=== PATIENT | female | born 1990 | race Caucasian/White ===

== ENCOUNTER 2017-01-12 11:38 | Emergency (ER) | payer BC, OTHER ==
[2017-01-12 12:17] VITALS: BP 102/62
--- NOTE | 2017-01-12 13:09 | UC ---
Throat Pain/Nasal Adolfo HPI - HPI Summary HPI Summary: Patient presents to the with sore throat and request for a rapid strep. Denies other symptoms including cough, congestion, eye pain, ear pain, fatigue. Denies fevers, sweats, chills or other signs of a systemic illness. She has a history of strep and states this feels similar. Otherwise healthy. Takes no medications. She has been using OTC cepcol tabs with mild relief. +odynophagia; + dysphagia - History of Current Complaint Chief Complaint: UCGeneralIllness Stated Complaint: SORE THROAT Time Seen by Provider: 01/12/17 12:07 Hx Obtained From: Patient Hx Last Menstrual Period: 12/23/16 ?: No Onset/Duration: Sudden Onset Severity: Moderate Pain Intensity: 3 Pain Scale Used: 0-10 Numeric Associated Signs & Symptoms: Positive: Dysphagia - Epiglottits Risk Factors Epiglottis Risk Factors: Negative - Allergies/Home Medications Allergies/Adverse Reactions: Allergies Allergy/AdvReac Type Severity Reaction Status Date / Time No Known Allergies Allergy Verified 01/12/17 12:12 Home Medications: Home Medications Ibuprofen TAB* [Advil TAB*] 200 mg PO Q6H PRN 01/12/17 [History Confirmed ] Multivitamins/Minerals TAB* [Thera M Plus TAB*] 1 tab PO DAILY 01/12/17 [ History Confirmed 01/12/17] Probiotic Product [Probiotic] 1 tab PO DAILY 01/12/17 [History Confirmed ] PMH/Surg Hx/FS Hx/Imm Hx Previously Healthy: Yes - Surgical History Surgical History: Yes Surgery Procedure, Year, and Place: D&C, 2016 - Family History Known Family History: Positive: Unknown - Social History Occupation: Employed Full-time Lives: With Family Alcohol Use: Occasionally Substance Use Type: None Smoking Status (MU): Former Smoker Amount Used/How Often: <1/4 PPD Length of Time of Smoking/Using Tobacco: On and Off for a total of 7 Years When Did the Patient Quit Smoking/Using Tobacco: 2012 - Immunization History Most Recent Influenza Vaccination: 12/30/16 Review of Systems Constitutional: Negative Skin: Negative ENT: Sore Throat Respiratory: Negative Cardiovascular: Negative Motor: Negative Neurovascular: Negative Musculoskeletal: Negative Neurological: Negative Is Patient Immunocompromised?: No All Other Systems Reviewed And Are Negative: Yes Physical Exam Triage Information Reviewed: Yes Appearance: Well-Appearing, Well-Nourished Vital Signs: Initial Vital Signs Temp 98.6 F 01/12/17 12:10 Pulse 72 01/12/17 12:10 Resp 16 01/12/17 12:10 BP 102/62 01/12/17 12:10 Pulse Ox 100 01/12/17 12:10 Vital Signs Reviewed: Yes Eye Exam: Normal Eyes: Positive: Conjunctiva Clear ENT: Positive: Pharyngeal erythema Neck exam: Normal Neck: Positive: Supple, No Lymphadenopathy Respiratory Exam: Normal Respiratory: Positive: Chest non-tender, Lungs clear Cardiovascular Exam: Normal Cardiovascular: Positive: RRR Musculoskeletal Exam: Normal Musculoskeletal: Positive: Strength Intact Neurological Exam: Normal Neurological: Positive: Alert Psychological: Positive: Normal Response To Family Skin Exam: Normal Throat Pain/Nasal Course/Dx - Course Course Of Treatment: Patient evaluated for sore throat x 2 days. Strep negative. Patient states she is OK with OTC supportive care and OK with discharge. - Differential Dx/Diagnosis Differential Diagnosis/HQI/PQRI: Pharyngitis, Tonsillitis, URI Provider Diagnoses: Pharyngitis Discharge - Discharge Plan Condition: Stable Disposition: HOME Patient Education Materials: Pharyngitis (ED) Referrals: No Primary Care Phys,NOPCP [Medical Doctor] - Additional Instructions: Cepacol and Chloraseptic sprays are best for throat pain Ibuprofen 600mg three times daily Ice cold drinks, ice chips and other cold foods Avoid food with sharp edges and salt If symptoms become worse, return to the or go to the ED
== END 2017-01-12 12:54 | disposition home or self-care (01) ==
LOC: UCCORT 11:38
DX: J02.9 Acute pharyngitis, unspecified (principal); Z87.891 Personal history of nicotine dependence
CPT/HCPCS: 87651; 99211; G0463

== ENCOUNTER 2017-10-06 15:55 | Emergency (ER) | payer OTHER ==
--- NOTE | 2017-10-06 16:06 | UC ---
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 She notified the staff there and the cat is currently being quarantined. Took some ibuprofen before coming. Denies fever, chills. Unsure if the cat is immunized. - History of Current Complaint Stated Complaint: CAT BITE Time Seen by Provider: 10/06/17 16:06 Hx Obtained From: Patient Hx Last Menstrual Period: 12/23/16 Severity Currently: Mild Severity Initially: Mild Pain Intensity: 4 Pain Scale Used: 0-10 Numeric Onset/Duration: Sudden Onset Type of Bite: Animal Has Animal Been Immunized?: Unknown Character: Puncture - Allergies/Home Medications Allergies/Adverse Reactions: Allergies Allergy/AdvReac Type Severity Reaction Status Date / Time No Known Allergies Allergy Verified 10/06/17 16:09 Home Medications: Home Medications Escitalopram (NF) [Lexapro 5 mg (NF)] 15 mg PO DAILY 10/06/17 [History Confirmed 10/06/17] Spironolactone TAB* [Aldactone TAB*] 50 mg PO DAILY 10/06/17 [History Confirmed 10/06/17] PMH/Surg Hx/FS Hx/Imm Hx Cardiovascular History: Hypertension Psychological History: Anxiety - Surgical History Surgical History: Yes Surgery Procedure, Year, and Place: D&C, 2016 - Family History Known Family History: Positive: Unknown - Social History Occupation: Employed Full-time Lives: With Family Alcohol Use: Occasionally Substance Use Type: None Smoking Status (MU): Former Smoker Amount Used/How Often: <1/4 PPD Length of Time of Smoking/Using Tobacco: On and Off for a total of 7 Years When Did the Patient Quit Smoking/Using Tobacco: 2012 - Immunization History Most Recent Influenza Vaccination: 12/30/16 Review of Systems Constitutional: Negative Skin: Other - Puncture wound right hand Respiratory: Negative Cardiovascular: Negative Neurovascular: Negative Neurological: Negative Psychological: Negative All Other Systems Reviewed And Are Negative: Yes Physical Exam - Summary Physical Exam Summary: GENERAL: NAD. WDWN. No pain distress. SKIN: Right thenar region: 2 puncture wounds and 1 linear abrasion. Mild edema, erythema, and tenderness to area. No streaking, bleeding, or drainage. NECK: Supple. Nontender. No lymphadenopathy. CHEST: No accessory muscle use. Breathing comfortably and in no distress. CV: RRR. Without m/r/g. Pulses intact. NEURO: Alert. CN II-XII grossly intact. PSYCH: Age appropriate behavior. Triage Information Reviewed: Yes Bite Injury Course/Dx - Course Course Of Treatment: Cat bite to right hand - rx for augmentin. She will follow up with the health department for further instructions. Upon waiting to be discharged, the patient experienced a syncopal episode while sitting in the chair. Her ~6 yo daughter witnessed this and said her mother was "out" for about 10 seconds. Pt tells me that she had just taken a sip of water and felt lightheaded, hot, and nauseous and then "blacked out". Woke up a few seconds later limping over the side of the chair and she had dropped the water on the floor. No SOB, chest pain, or headache. She tells me that this happened to her when she was younger and was found to be anemic, but has had no problems with this since childhood. Upon trying to stand the pt she became pale and felt hot, sweaty, and lightheaded again. She was moved to a stretcher and EKG was performed. EKG reveals NSR 69bpm no ST changes as read by Dr. Alves. Orthostatic BP went from sitting 95/59 with HR 72 to standing BP 71/36 with HR 56 and pt had return of symptoms and had to sit down again. I discussed with the patient transfer via ambulance to the ED for further evaluation. She did not want to go by ambulance, but was able to call a family member to drive her to the ED. Pt was escorted in a wheelchair to her sister's car and sister will drive her to the ED. - Differential Dx/Diagnosis Provider Diagnoses: Cat bite right hand. Syncope Discharge - Sign-Out/Discharge Documenting (check all that apply): Discharge/Admit/Transfer - Discharge Plan Condition: Stable Disposition: HOME Prescriptions: Amoxicillin/Clavulanate TAB* [Augmentin TAB 875*] 875 mg PO BID #20 tab Fluconazole 150 MG (NF) [Diflucan 150 mg (NF)] 150 mg PO ONCE #1 tab Patient Education Materials: Animal Bite (ED) Referrals: Non Staff,Doctor [Primary Care Provider] - Additional Instructions: If you develop a fever, shortness of breath, chest pain, new or worsening symptoms - please call your PCP or go to the ED. 1) The health department will be contacting you. You can notify them that your tetanus shot was updated today and that you are currently taking Augmentin for your cat bite. Regarding your fainting today - please go to the ER for further evaluation - Billing Disposition and Condition Condition: STABLE Disposition: Home
[2017-10-06] MEDS ORDERED: Tetan/Diph/Pertus SYR(Tdap)* 0.5 ML SYR(BOOSTRIX) use SYR IM ONE (16:20)
[2017-10-06] MEDS ORDERED: Ibuprofen TAB* 400 MG PO ONE (17:13)
[2017-10-06 17:49] VITALS: BP 107/65
== END 2017-10-06 17:53 | disposition home or self-care (01) ==
LOC: UCCORT 15:55
DX: S61.451A Open bite of right hand, initial encounter (principal); W55.01XA Bitten by cat, initial encounter; Y93.89 Activity, other specified; Y92.89 Other specified places as the place of occurrence of the external cause; R55 Syncope and collapse; I10 Essential (primary) hypertension; F41.9 Anxiety disorder, unspecified; Z87.891 Personal history of nicotine dependence
CPT/HCPCS: 90715; 93005; 99213; A9270-GY; G0463

== ENCOUNTER 2019-02-12 09:56 | Emergency (ER) | payer OTHER ==
--- OUTSIDE RECORDS SUMMARY | 2019-02-12 10:48 | XMS REPORT | Continuity of Care Document ---
:1990 External Reference #:[id number] Author Name Anshu Galloway MD Address [address], [address] [place] [address] Care Team Providers Name Role Phone Anshu Galloway M.D. 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 Palpitations Donte Collins MD Onset: 01/29/2015 Social History Type Date Description Comments Sex Unknown ETOH Use Rarely consumes alcohol Tobacco Use Start: Unknown End: Patient is a former smoker Recreational Drug Use Denies Drug Use Smoking Status Reviewed: 01/25/19 Patient is a former smoker Exercise Type/Frequency Exercises sporadically Allergies, Adverse Reactions, Alerts Active Allergies Reaction Severity Comments Date NKDA 10/07/2015 No Known Allergies 10/03/2015 Medications Active Medications SIG Qnty Indications Ordering Provider Date No Active Medications Unknown 01/25/2019 History Medications Amoxicillin one tablet by 20tabs J02.9 Geneva Ovalle MD 09/11/2018 - 875mg mouth twice a 09/21/2018 Tablets day x10 days. Medications Administered in Office Medication SIG Qnty Indications Ordering Provider Date TB Intradermal Test (PPD) Nurse, Nurse, Team E 10/09/2018 Injection TB Intradermal Test (PPD) Nurse, Nurse, Team E 09/25/2018 Injection TB Intradermal Test (PPD) Nurse, Nurse, Team E 08/23/2018 Injection Immunizations CPT Code Status Date Vaccine Lot # [id number] Given 01/20/2018 Influenza Vaccine, Quadrivalent, Split Virus, Im [id number] Use (Multi-Dose) 38347 Given 10/04/2017 MMR Vaccine, Live, For Subcutaneous Use [id number] 82941 Given 12/30/2016 Influenza Vaccine, Quadrivalent, Split Virus, Im [id number] Use (Multi-Dose) 19731 Given 02/13/2015 Influenza Virus Vaccine, Split 3 Yrs AB Vital Signs Date Vital Result Comment 01/25/2019 3:07pm Height 61 inches 5'1" Weight 134.12 lb BMI (Body Mass Index) 25.3 kg/m2 BP Systolic 108 mmHg BP Diastolic 68 mmHg Heart Rate 66 /min Body Temperature 97.9 F Body Temperature 36.6 C O2 % BldC Oximetry 98 % 10/18/2018 11:01am Height 61 inches 5'1" Weight 140.38 lb BMI (Body Mass Index) 26.5 kg/m2 BP Systolic 70 mmHg BP Diastolic 4 mmHg Heart Rate 59 /min Body Temperature 98.0 F Body Temperature 36.7 C O2 % BldC Oximetry 97 % Results Test Date Facility Test Result H/L Range Note Laboratory test E Learning Coordinator [facility] Rapid Strep POSITIVE Negative-N 1 finding 9 [address] [place] [address] [phone] Laboratory test E Learning Coordinator [facility] Varicella AB 2.91 - 2 finding 9 [address] [place] [address] [phone] Venipuncture DONE - 1 Result called to Vandana 6.3.19 10:52am bab [facility] and pranay 6.3.19 10:52am bab Negative screens should have a new specimen submitted for Group A Strep culture if clinically indicated. 2 As of 01/12/2016 Varicella AB IgG testing is performed on the [employer] DSX using KRYSTA methodology. Index Value Results Interpretation < 0.9 NEGATIVE NO VZV ANTIBODY DETECTED > = 0.9 to < 1.1 EQUIVOCAL PRESENCE OR ABSENCE OF VZV IGG ANTIBODY CANNOT BE DISCERNED > = 1.1 POSITIVE VZV IGG ANTIBODY DETECTED DISCLAIMER: A positive result indicates that the patient has antibody to VZV. It does not differentiate between an active or past infection. The clinical diagnosis must be interpreted in conjuction with the clinical signs and symptoms of the patient. The presence of IgG VZV Antibody is consistent with immunity. 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 Assessments Date Code Description Provider 01/25/2019 Z00.00 Encounter for general adult medical Anshu Galloway MD examination without abnormal findings 01/25/2019 F41.9 Anxiety disorder, unspecified Anshu Galloway MD 10/18/2018 F41.9 Anxiety disorder, unspecified Anshu Galloway MD 10/11/2018 Z11.1 Encounter for screening for respiratory Nurse, Nurse, Team E tuberculosis 10/09/2018 Z11.1 Encounter for screening for respiratory Anshu Galloway MD tuberculosis 10/09/2018 Z23 Encounter for immunization Nurse, Nurse, Team E 09/25/2018 Z23 Encounter for immunization Anshu Galloway MD 09/25/2018 Z23 Encounter for immunization Nurse, Nurse, Team E 09/11/2018 J02.9 Acute pharyngitis, unspecified Leonid Lomeli NP 09/11/2018 J02.9 Acute pharyngitis, unspecified [facility] 08/25/2018 Z11.1 Encounter for screening for respiratory Anshu Galloway MD tuberculosis 08/25/2018 Z11.1 Encounter for screening for respiratory Nurse, Nurse, Team E tuberculosis 08/23/2018 Z23 Encounter for immunization Anshu Galloway MD 08/23/2018 Z23 Encounter for immunization Nurse, Nurse, Team E 08/23/2018 Z23 Encounter for immunization [facility] Plan of Treatment 01/25/2019 - Anshu Galloway MDZ00.00 Encounter for general adult medical examination without abnormal findingsFollow up:In 12 [id number] Anxiety disorder, unspecified Functional Status Description No Information Available Mental Status Description No Information Available Referrals Description No Information Available
[2019-02-12 10:54] VITALS: BP 113/64
--- NOTE | 2019-02-12 11:15 | UC ---
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 Past UTI's, last over a year ago. Stable relationship x 10 years, not concerned about STI's. Has mild vaginal discomfort and would like screening for yeast and vaginosis. - History Of Current Complaint Chief Complaint: UCGU Stated Complaint: URINARY COMPLAINT Time Seen by Provider: 02/12/19 11:08 Hx Obtained From: Patient Hx Last Menstrual Period: 01/25/19 Onset/Duration: Gradual Onset, Lasting Days - 6-7, Worse Since - last pm Timing: Intermittent Severity Initially: Mild Pain Intensity: 0 Character: Burning, Cramping Aggravating Factor(s): Urination Alleviating Factor(s): Nothing Associated Signs And Symptoms: Positive: Negative. Negative: Back Pain, Nausea - Risk Factors Ectopic Risk Factor: Negative Ovarian Torsion Risk Factor: Negative - Allergies/Home Medications Allergies/Adverse Reactions: Allergies Allergy/AdvReac Type Severity Reaction Status Date / Time No Known Allergies Allergy Verified 02/12/19 10:52 Home Medications: Home Medications Cranberry Fruit Extract/Vit C [Azo Cranberry Softgel] 2 tab PO ONCE 02/12/19 [ History Confirmed 02/12/19] PMH/Surg Hx/FS Hx/Imm Hx Previously Healthy: Yes - Surgical History Surgical History: Yes Surgery Procedure, Year, and Place: D&C, 2016 - Family History Known Family History: Positive: Diabetes - mother and MGM - Social History Occupation: Employed Full-time - [employer], Student - at 3 Lives: With Family Alcohol Use: Rare Substance Use Type: None Smoking Status (MU): Former Smoker Amount Used/How Often: <1/4 PPD Length of Time of Smoking/Using Tobacco: On and Off for a total of 7 Years When Did the Patient Quit Smoking/Using Tobacco: 2012 - Immunization History Most Recent Influenza Vaccination: 12/30/16 Review of Systems All Other Systems Reviewed And Are Negative: Yes Constitutional: Positive: Negative Skin: Positive: Negative Eyes: Positive: Negative ENT: Positive: Negative Respiratory: Positive: Negative Cardiovascular: Positive: Negative Gastrointestinal: Positive: Negative Genitourinary: Positive: Dysuria, Frequency, Vaginal/Penile Itching Motor: Positive: Negative Neurovascular: Positive: Negative Musculoskeletal: Positive: Negative Neurological: Positive: Negative Psychological: Positive: Negative Is Patient Immunocompromised?: No Physical Exam Triage Information Reviewed: Yes Appearance: Well-Appearing, No Pain Distress Vital Signs: Initial Vital Signs Temp 98.6 F 02/12/19 10:49 Pulse 60 02/12/19 10:49 Resp 16 02/12/19 10:49 BP 113/64 02/12/19 10:49 Pulse Ox 100 02/12/19 10:49 ENT: Positive: Normal ENT inspection Respiratory: Positive: Lungs clear, Normal breath sounds Cardiovascular: Positive: RRR, No Murmur Abdomen Description: Positive: No Organomegaly, Soft, Other: - mild suprapubic tenderness.. Negative: Distended, Guarding Musculoskeletal Exam: Normal Neurological Exam: Normal Diagnostics - Laboratory Lab Results: UA with 1+ esterase. Complaint Female Dx - Course Course Of Treatment: 28 yo with one week of symptoms suggestive UTI; will begin macrodantin and await culture and results of Affirm. - Differential Dx/Diagnosis Differential Diagnosis/HQI/PQRI: Urinary Tract Infection, Other - vaginitis. Provider Diagnosis: UTI (urinary tract infection) Discharge ED - Sign-Out/Discharge Documenting (check all that apply): Patient Departure All imaging exams completed and their final reports reviewed: No Studies - Discharge Plan Condition: Good Disposition: HOME Prescriptions: Nitrofurantoin Monohyd/M-Cryst [Macrobid 100 mg Capsule] 100 mg PO BID #14 cap Patient Education Materials: Urinary Tract Infection in Women (ED) Referrals: Anshu Galloway MD [Primary Care Provider] - Additional Instructions: Begin treatment with macrobid, anticipating improvement in symptoms in 1-2 days. Urine culture has beens sent and you will be notified if a change of antibiotics is needed. Swab to screen for yeast and vaginitis has been sent and you will be notified if treatment is needed. - Billing Disposition and Condition Condition: GOOD Disposition: Home
== END 2019-02-12 11:32 | disposition home or self-care (01) ==
LOC: UCCORT 09:56
DX: N39.0 Urinary tract infection, site not specified (principal); Z87.891 Personal history of nicotine dependence
CPT/HCPCS: 81003; 87077; 87086; 87186; 87480; 87510; 99212; G0463